=== PATIENT | female | born 1990 | race Caucasian/White ===

== ENCOUNTER 2022-12-30 13:34 | Emergency (ER) | payer OTHER ==
[2022-12-30] MEDS ORDERED: Sodium Chloride 0.9% 1,000 ML ONE (14:16)
[2022-12-30 14:59] LABS: Amphetamine Not Detected (NotDetected); Barbiturates Screen Not Detected (NotDetected); Benzodiazepine Screen Not Detected (NotDetected); Cocaine Metabolite Screen Not Detected (NotDetected); Methadone Not Detected (NotDetected); Methamphetamine Not Detected (NotDetected); Opiate Screen Not Detected (NotDetected); Oxycodone Screen Not Detected (NotDetected); Phencyclidine (PCP) Not Detected (NotDetected); Pregnancy Test - Urine (BHCG) Negative (Negative); Pregu Control Background? CLEAR/WHITE (CLR/WHITE); Pregu Control Bar Appear? YES (CONTROL BAR); THC/Cannabinoid Screen Not Detected (NotDetected); Tricyclic Screen Not Detected (NotDetected)
[2022-12-30 15:02] LABS: ALT (SGPT) 17 U/L (8-55); AST (SGOT) 22 U/L (5-34); Albumin 4.3 g/dL (3.5-5.0); Alkaline Phosphatase 47 U/L (40-110); Anion Gap 14 mmol/L (10-20); BUN (Urea Nitrogen) 5 mg/dL (7.0-18.7); Bilirubin, Total 0.7 mg/dL (0.2-1.2); Calc. Creatinine Clearance 0 mL/min (70-130); Calcium 9.3 mg/dL (7.8-10.44); Carbon Dioxide 20 mmol/L (22-29); Chloride 106 mmol/L (98-107); Estimated GFR 105; Globulin 3.3 g/dL (2.4-3.5); Glucose 79 mg/dL (70-105); Potassium 4.6 mmol/L (3.5-5.1); Protein, Total 7.6 g/dL (6.0-8.3); Sodium 135 mmol/L (136-145)
[2022-12-30 15:06] LABS: #Basophils 0.2 thou/uL (0.0-0.2); #Eosinphils 0.7 thou/uL (0.0-0.7); #Lymphocytes 2.4 thou/uL (1.20-3.40); #Monocytes 0.6 thou/uL (0.11-0.59); #Neutrophils 6.6 thou/uL (1.40-6.50); %Basophils 1.8 % (0.0-1.0); %Eosinophils 6.9 % (0.0-10.0); %Lymphocytes 22.7 % (21.0-51.0); %Monocytes 5.3 % (0.0-10.0); %Neutrophils 63.3 % (42.0-75.0); Hematocrit 56.5 % (36.0-47.0); Hemoglobin 17.8 g/dL (12.0-16.0); Mean Corpuscular HGB CONC 31.6 g/dL (32.0-36.0); Mean Corpuscular Hemoglobin 27.7 pg (27.0-31.0); Mean Corpuscular Volume 87.6 fl (78.0-98.0); Mean Platelet Volume 6.1 fL (7.4-10.4); Platelet Count 295 10x3/uL (130-400); RBC Distribution Width 12.9 % (11.5-14.5); Red Blood Cell (RBC) Count 6.44 mill/uL (4.20-5.40); White Blood Cell (WBC) Count 10.4 10x3/uL (4.8-10.8)
[2022-12-30] MEDS ORDERED: Ondansetron ODT 4 MG TAB ONE (15:35)
[2022-12-30] MEDS ORDERED: Ibuprofen 800 MG TAB ONE (15:35)
[2022-12-30] MEDS ORDERED: Meclizine HCl 25 MG TAB ONE (16:24)
[2022-12-30] MEDS ORDERED: diphenhydrAMINE 50 MG/ML VIAL ONE (17:17)
[2022-12-30] MEDS ORDERED: Metoclopramide HCl 10 MG/2 ML VIAL ONE (17:17)
[2022-12-30] MEDS ORDERED: Sodium Chloride 0.9% 500 ML ONE (17:18)
== END 2022-12-30 19:17 | disposition home or self-care (01) ==
LOC: NAV ERS 13:34
DX: R42 Dizziness and giddiness (principal); R51.9 Headache, unspecified
CPT/HCPCS: 71045; 80053; 80306; 81025; 85025; 93005; 96365; 96375; J1200; J2765; J7030; J7050; Q0162

== ENCOUNTER 2023-04-03 16:29 | Emergency (ER) | payer OTHER ==
[2023-04-03] MEDS ORDERED: Morphine 2 MG/ML VIAL ONE (16:53)
[2023-04-03] MEDS ORDERED: Sodium Chloride 0.9% 1,000 ML ONE ×2 (16:53→21:27)
[2023-04-03] MEDS ORDERED: Ondansetron PF 4 MG/2 ML Vial ONE ×2 (16:53→20:26)
[2023-04-03 17:10] LABS: #Basophils 0.3 thou/uL (0.0-0.2); #Eosinphils 0.4 thou/uL (0.0-0.7); #Lymphocytes 1.2 thou/uL (1.20-3.40); #Monocytes 0.9 thou/uL (0.11-0.59); #Neutrophils 11.2 thou/uL (1.40-6.50); %Lymphocytes 8.3 % (21.0-51.0); %Monocytes 6.3 % (0.0-10.0); %Neutrophils 80.4 % (42.0-75.0); Hematocrit 43.2 % (36.0-47.0); Hemoglobin 14.7 g/dL (12.0-16.0); Mean Corpuscular Hemoglobin 29.5 pg (27.0-31.0); Mean Corpuscular Volume 86.9 fl (78.0-98.0); Platelet Count 384 10x3/uL (130-400); RBC Distribution Width 12.4 % (11.5-14.5); Red Blood Cell (RBC) Count 4.97 mill/uL (4.20-5.40); White Blood Cell (WBC) Count 13.9 10x3/uL (4.8-10.8)
[2023-04-03 17:28] LABS: ALT (SGPT) 9 U/L (8-55); AST (SGOT) 13 U/L (5-34); Albumin 3.8 g/dL (3.5-5.0); Alkaline Phosphatase 48 U/L (40-110); Anion Gap 16 mmol/L (10-20); BUN (Urea Nitrogen) 5 mg/dL (7.0-18.7); Bilirubin, Total 0.3 mg/dL (0.2-1.2); Calc. Creatinine Clearance 0 mL/min (70-130); Carbon Dioxide 18 mmol/L (22-29); Chloride 103 mmol/L (98-107); Estimated GFR 117; Globulin 3.4 g/dL (2.4-3.5); Glucose 87 mg/dL (70-105); Potassium 3.9 mmol/L (3.5-5.1); Protein, Total 7.2 g/dL (6.0-8.3); Sodium 133 mmol/L (136-145)
[2023-04-03] MEDS ORDERED: methylPREDNISolone Sod Succ/PF 125 MG/2 ML VIAL ONE (17:54)
[2023-04-03] MEDS ORDERED: Ipratropium/Albuterol 3 ML NEB ONE ×2 (17:54→21:27)
[2023-04-03] MEDS ORDERED: Sodium Chloride For Inhalation 0.9% 3 ML NEB ONE (18:25)
[2023-04-03] MEDS ORDERED: Albuterol 2.5 MG/0.5 ML NEB ONE (18:25)
[2023-04-03] MEDS ORDERED: Magnesium 2 GM/50 ML BAG (IN WATER) ONE (20:10)
[2023-04-03 21:50] LABS: Bilirubin Negative (Negative); Blood, Urine Negative (Negative); Clarity Clear (Clear); Glucose, Urine (Dipstick) Negative (Negative); Ketone, Urine 40 mg/dL (Negative); Leukocyte Negative (Negative); Nitrite Negative (Negative); Protein, Urine (Dipstick) Negative (Neg-Trace); Urobilinogen 0.2 mg/dL (Less than 2)
[2023-04-03 21:51] LABS: Bacteria/HPF None Seen HPF (None Seen); CAUTI Indications for Culture Fever or rigors; RBC/HPF None Seen HPF (0-3); Squamous Epithelial None Seen HPF (0-3); Urine Culture Reflex No No; WBC/HPF None Seen HPF (0-3)
[2023-04-03 22:03] LABS: SARS-CoV-2 NAA Rapid Test Not Detected (NotDetected)
== END 2023-04-03 22:44 | disposition short-term general hospital (02) ==
LOC: NAV ERS 16:29
DX: O99.512 Diseases of the respiratory system complicating pregnancy, second trimester (principal); J10.1 Influenza due to other identified influenza virus with other respiratory manifestations; J45.901 Unspecified asthma with (acute) exacerbation; Z20.822 Contact with and (suspected) exposure to COVID-19; Z3A.16 16 weeks gestation of pregnancy
CPT/HCPCS: 71045; 80053; 81001; 85025; 85379; 87804; 87807; 93005; 96361; 96365; 96375; 96376; J2272; J2405; J2930; J3475; J7050; J7611; J7620; U0002